=== PATIENT | male | born 1935 | race Caucasian/White ===

== ENCOUNTER 2016-11-21 19:36 | Inpatient (IN) | payer MEDICARE ==
[2016-11-21 20:55] LABS: BASOPHIL 0.7 % (0-2); EOSINOPHIL 2.8 % (0-7); HCT 32.5 % (42.0-52.0); HGB 10.6 g/dl (13.2-18.0); LYMPHOCYTE 29.2 % (15-48); MCH 35.6 pg (25.0-31.0); MCHC 32.6 g/dL (32.0-36.0); MCV 109.1 fL (78.0-100.0); MPV 9.8 fL (6.0-9.5); NEUTROPHIL 56.3 % (41-80); PLT 248 K/uL (150-400); RBC 2.98 M/uL (4.70-6.00); RDW 13.7 % (11.5-14.0); WBC 7.6 K/uL (4.0-10.5)
[2016-11-21 21:07] LABS: INR 0.94 (0.9-1.2); PROTHROMBIN TIME 12.2 SECONDS (11.7-14.0); PTT 24.8 SECONDS (23.2-31.4)
[2016-11-21 21:15] LABS: ALBUMIN 3.5 g/dL (3.4-4.8); BILIRUBIN - TOTAL 0.2 mg/dL (0.1-1.0); CREATININE 2.9 mg/dL (0.7-1.2); GLOBULIN (CALCULATION) 3.2 g/dL (2.2-4.2); POTASSIUM 5.1 mmol/L (3.5-5.1); TOTAL PROTEIN 6.7 g/dL (6.4-8.3)
[2016-11-21 21:17] LABS: TROPONIN T 0.039 ng/mL
[2016-11-21 21:18] LABS: LACTIC ACID 1.9 mmol/L (0.5-2.2)
[2016-11-21 21:20] LABS: CKMB 5.7 ng/mL (0.97-4.94)
[2016-11-21 22:02] LABS: BILIRUBIN NEGATIVE (NEGATIVE); BLOOD NEGATIVE Ery/uL (NEGATIVE); CLARITY CLEAR (CLEAR); COLOR YELLOW (YELLOW); GLUCOSE (U) NORMAL (NORMAL); KETONE (U) TRACE mg/dL (NEGATIVE); LEUKOCYTES NEGATIVE Leu/uL (NEGATIVE); NITRITE NEGATIVE (NEGATIVE); PROTEIN TRACE (LOW) mg/dL (NEGATIVE); UROBILINOGEN 0.2 mg/dL (0.2-1.0); pH 5.5 (5.0-9.0)
[2016-11-22 08:35] LABS: BASOPHIL 0.6 % (0-2); EOSINOPHIL 2.8 % (0-7); HCT 33.9 % (42.0-52.0); HGB 11.1 g/dl (13.2-18.0); LYMPHOCYTE 29.9 % (15-48); MCH 35.4 pg (25.0-31.0); MCHC 32.7 g/dL (32.0-36.0); MPV 9.5 fL (6.0-9.5); NEUTROPHIL 55.7 % (41-80); PLT 246 K/uL (150-400); RBC 3.14 M/uL (4.70-6.00); RDW 13.5 % (11.5-14.0); WBC 6.8 K/uL (4.0-10.5)
[2016-11-22 08:56] LABS: CKMB 4.82 ng/mL (0.97-4.94); TROPONIN T 0.035 ng/mL
[2016-11-22 08:58] LABS: ALBUMIN 3.3 g/dL (3.4-4.8); BILIRUBIN - TOTAL 0.3 mg/dL (0.1-1.0); CREATININE 2.2 mg/dL (0.7-1.2); GLOBULIN (CALCULATION) 2.6 g/dL (2.2-4.2); POTASSIUM 4.9 mmol/L (3.5-5.1); TOTAL PROTEIN 5.9 g/dL (6.4-8.3)
[2016-11-23 04:52] LABS: BASOPHIL 0.2 % (0-2); EOSINOPHIL 3.1 % (0-7); HCT 32.4 % (42.0-52.0); HGB 10.6 g/dl (13.2-18.0); MCH 35.3 pg (25.0-31.0); MCHC 32.7 g/dL (32.0-36.0); MONOCYTE 11.9 % (0-12); MPV 9.3 fL (6.0-9.5); NEUTROPHIL 59.8 % (41-80); PLT 270 K/uL (150-400); RDW 13.5 % (11.5-14.0); WBC 8.1 K/uL (4.0-10.5)
[2016-11-23 05:14] LABS: CREATININE 1.8 mg/dL (0.7-1.2); POTASSIUM 4.8 mmol/L (3.5-5.1)
[2016-11-24 05:14] LABS: HCT 33.3 % (42.0-52.0); HGB 10.8 g/dl (13.2-18.0); MCH 35.2 pg (25.0-31.0); MCHC 32.4 g/dL (32.0-36.0); MCV 108.5 fL (78.0-100.0); MPV 9.2 fL (6.0-9.5); RBC 3.07 M/uL (4.70-6.00); RDW 13.5 % (11.5-14.0)
[2016-11-24 05:34] LABS: CREATININE 1.9 mg/dL (0.7-1.2); POTASSIUM 5.5 mmol/L (3.5-5.1)
[2016-11-24] MEDS ORDERED: LOVAZA1 GM PO (17:24)
[2016-11-24] MEDS ORDERED: TOPROL XL 50 MG50 MG PO (17:24)
[2016-11-24] MEDS ORDERED: OMEPRAZOLE40 MG PO (17:24)
[2016-11-24] MEDS ORDERED: ASPIRIN CHEWABL81 MG PO (17:24)
[2016-11-24] MEDS ORDERED: CERTAGEN1 EACH PO (17:24)
[2016-11-24] MEDS ORDERED: PROZAC20 M1 PO (17:25)
[2016-11-24] MEDS ORDERED: DIGITEK125 MCG PO (17:25)
[2016-11-24] MEDS ORDERED: DICYCLOMINE HCL20 MG PO (17:25)
[2016-11-24] MEDS ORDERED: FEOSOL325 MG PO (17:25)
[2016-11-24] MEDS ORDERED: BUMEX1 MG PO (17:25)
[2016-11-24] MEDS ORDERED: LAMICTAL200 MG PO (17:26)
[2016-11-24] MEDS ORDERED: PRAVACHOL80 MG PO (17:26)
[2016-11-24] MEDS ORDERED: NOVOLOG VI100 UNIT/1 SC (17:26)
[2016-11-24] MEDS ORDERED: LANTUS **100 UNITS/ SC (17:26)
== END 2016-11-24 18:15 | disposition home health service (06) | DRG 684 ==
LOC: FER 19:36 → FTCU 11-22 02:58
PROVIDERS: Emergency Medicine; Internal Medicine; Nurse Practitioner Family; ADMIT Internal Medicine
DX: N17.9 Acute kidney failure, unspecified (principal); E11.22 Type 2 diabetes mellitus with diabetic chronic kidney disease; I13.10 Hypertensive heart and chronic kidney disease without heart failure, with stage 1 through stage 4 chronic kidney disease, or unspecified chronic kidney disease; I10 Essential (primary) hypertension; N18.3 Chronic kidney disease, stage 3 (moderate); I25.10 Atherosclerotic heart disease of native coronary artery without angina pectoris; I25.5 Ischemic cardiomyopathy; E87.5 Hyperkalemia; Z79.82 Long term (current) use of aspirin; I70.0 Atherosclerosis of aorta; Z79.4 Long term (current) use of insulin; E86.0 Dehydration; Z95.1 Presence of aortocoronary bypass graft; Z95.810 Presence of automatic (implantable) cardiac defibrillator; Z98.61 Coronary angioplasty status; Z91.81 History of falling; I50.9 Heart failure, unspecified
CPT/HCPCS: 36415; 70450; 71010; 72125; 72170; 80048; 80053; 80061; 80162; 81001; 82550; 82553; 82962; 83605; 83874; 84132; 84484; 85025; 85610; 85730; 93005; 97116; 97162; 97166; 97530; 97530-GP; 97535; G0378; J1815

== ENCOUNTER 2016-12-13 21:55 | Emergency (ER) | payer MEDICARE ==
[~2016-12-13 21:55] MED LIST: ASPIRIN CHEWABL81 MG PO; BUMEX1 MG PO; CERTAGEN1 EACH PO; DICYCLOMINE HCL20 MG PO; DIGITEK125 MCG PO; FEOSOL325 MG PO; LAMICTAL200 MG PO; LANTUS **100 UNITS/ SC; LOVAZA1 GM PO; NOVOLOG VI100 UNIT/1 SC; OMEPRAZOLE40 MG PO; PRAVACHOL80 MG PO; PROZAC20 M1 PO; TOPROL XL 50 MG50 MG PO
[2016-12-13 23:55] LABS: BASOPHIL 0.2 % (0-2); EOSINOPHIL 0.4 % (0-7); HCT 27.7 % (42.0-52.0); HGB 8.9 g/dl (13.2-18.0); LYMPHOCYTE 18.9 % (15-48); MCH 35.5 pg (25.0-31.0); MCHC 32.1 g/dL (32.0-36.0); MCV 110.4 fL (78.0-100.0); MONOCYTE 9.5 % (0-12); MPV 10.3 fL (6.0-9.5); PLT 255 K/uL (150-400); RBC 2.51 M/uL (4.70-6.00); RDW 13.9 % (11.5-14.0); WBC 9.8 K/uL (4.0-10.5)
[2016-12-14 00:10] LABS: ALBUMIN 3.4 g/dL (3.4-4.8); BILIRUBIN - TOTAL 0.3 mg/dL (0.1-1.0); CREATININE 2.2 mg/dL (0.7-1.2); GLOBULIN (CALCULATION) 2.9 g/dL (2.2-4.2); TOTAL PROTEIN 6.3 g/dL (6.4-8.3)
[2016-12-14 02:11] LABS: TROPONIN T 0.115 ng/mL
[2016-12-14 02:49] LABS: BILIRUBIN NEGATIVE (NEGATIVE); BLOOD TRACE-LYSED Ery/uL (NEGATIVE); CLARITY CLEAR (CLEAR); COLOR YELLOW (YELLOW); GLUCOSE (U) 3+ mg/dL (NORMAL); KETONE (U) NEGATIVE (NEGATIVE); LEUKOCYTES NEGATIVE Leu/uL (NEGATIVE); NITRITE NEGATIVE (NEGATIVE); PROTEIN TRACE (LOW) mg/dL (NEGATIVE); SPECIFIC GRAVITY 1.015 (1.001-1.030); UROBILINOGEN 0.2 mg/dL (0.2-1.0)
== END 2016-12-14 05:55 | disposition other institution (70) ==
LOC: FER 21:55
PROVIDERS: Emergency Medicine
DX: E11.22 Type 2 diabetes mellitus with diabetic chronic kidney disease (principal); I13.0 Hypertensive heart and chronic kidney disease with heart failure and stage 1 through stage 4 chronic kidney disease, or unspecified chronic kidney disease; N18.9 Chronic kidney disease, unspecified; N28.9 Disorder of kidney and ureter, unspecified; I50.9 Heart failure, unspecified; R79.89 Other specified abnormal findings of blood chemistry; Z95.0 Presence of cardiac pacemaker; Z95.1 Presence of aortocoronary bypass graft; Z95.5 Presence of coronary angioplasty implant and graft
CPT/HCPCS: 36415; 36600; 71010; 80053; 81001; 82009; 82803; 83880; 84484; 85025; 93005; 94760; 96372